=== PATIENT | female | born 1955 | race Caucasian/White ===

== ENCOUNTER 2018-06-12 11:11 | Emergency (ER) | payer OTHER ==
[~2018-06-12] VITALS: Ht 147.3 cm; Wt 70.0 kg
[2018-06-12 11:21] VITALS: Ht 147.3 cm; Wt 70.0 kg
--- NOTE | 2018-06-12 13:51 | ERD ---
ER Documentation Chief Complaint Chief Complaint Palpitation HPI The patient is a 63-year-old female, presenting to the ER because of intermittent palpitation for the last 3 days, lasted only a minute and went away by itself. She denies any symptom now, complains of a lot of stress in her life; her brother in March 30, 2018, her cousin yesterday. She denies syncope, near syncope, dizziness, neck pain, chest pain, dyspnea, abdominal pain, vomiting, dysuria, diarrhea. She does not smoke nor drink Past medical history: Dyslipidemia, hypertension, anxiety, asthma, diabetes mellitus Past surgical history: , hysterectomy, cholecystectomy ROS All systems reviewed and are negative except as per history of present illness. Physical Exam Vitals Vital Signs Date Temp Pulse Resp B/P (MAP) Pulse Ox O2 O2 Flow FiO2 Time Delivery Rate 06/12/18 98.5 84 19 182/82 97 11:21 (115) Physical Exam Const: No acute distress. Head: Atraumatic. Eyes: Normal Conjunctiva. ENT: Normal External Ears, Nose and Mouth. Neck: Full range of motion. No meningismus. Resp: Clear to auscultation bilaterally. Cardio: Regular rate and rhythm. Abd: Soft, non distended, normal bowel sounds, non tender. Skin: No petechiae or rashes. Back: No midline or flank tenderness. Ext: No cyanosis, or edema. Neur: Awake and alert. No focal deficit Psych: Normal Mood and Affect. Result Diagram: 06/12/18 1422 06/12/18 1422 Results 24 hrs Laboratory Tests Test 06/12/18 14:22 White Blood Count 8.9 10^3/ul Red Blood Count 5.10 10^6/ul Hemoglobin 15.4 g/dl Hematocrit 46.5 % Mean Corpuscular Volume 91.2 fl Mean Corpuscular Hemoglobin 30.2 pg Mean Corpuscular Hemoglobin Concent 33.1 g/dl Red Cell Distribution Width 12.5 % Platelet Count 222 10^3/UL Mean Platelet Volume 10.9 fl Immature Granulocytes % 0.400 % Neutrophils % 66.6 % Lymphocytes % 25.3 % Monocytes % 4.7 % Eosinophils % 2.4 % Basophils % 0.6 % Nucleated Red Blood Cells % 0.0 /100WBC Immature Granulocytes # 0.040 10^3/ul Neutrophils # 5.9 10^3/ul Lymphocytes # 2.3 10^3/ul Monocytes # 0.4 10^3/ul Eosinophils # 0.2 10^3/ul Basophils # 0.1 10^3/ul Nucleated Red Blood Cells # 0.0 10^3/ul Sodium Level 143 mmol/L Potassium Level 4.4 mmol/L Chloride Level 101 mmol/L Carbon Dioxide Level 30 mmol/L Anion Gap 12 Blood Urea Nitrogen 20 mg/dl Creatinine 0.42 mg/dl Est Glomerular Filtrat Rate mL/min > 60 mL/min Glucose Level 294 mg/dl Calcium Level 9.8 mg/dl Troponin I < 0.012 ng/ml Procedures/MDM EKG: Read by emergency physician Rate/Rhythm: Normal Sinus Rhythm 87 beats/min QRS, ST, T-waves: No ST elevation, no T inversion Impression: Normal EKG MEDICAL MAKING DECISION: The patient is a 63-year-old female, presenting with acute palpitation, resolved, is stable for outpatient follow-up The differential diagnoses considered include but are not limited to anxiety attack, panic attack, stress, thyroid disease, electrolyte imbalance Departure Diagnosis: Primary Impression: Palpitation Additional Impressions: Anxiety Stress Condition: Good Comments I discussed the findings with the patient. I advised the patient to follow-up with the primary physician in about 2-3 days, sooner if needed and return if any concern. Disclaimer: Inadvertent spelling and grammatical errors are likely due to EHR/dictation software use and do not reflect on the overall quality of patient care. Also, please note that the electronic time recorded on this note does not necessarily reflect the actual time of the patient encounter. DIMITRIS LARSON MD Jun 12, 2018 13:51
[2018-06-12 16:07] VITALS: BP 135/63; PULSE 75; RESP 16
== END 2018-06-12 18:23 | disposition home or self-care (01) ==
LOC: E/R 11:11
DX: F41.9 Anxiety disorder, unspecified (principal); F43.9 Reaction to severe stress, unspecified
CPT/HCPCS: 36415; 80048; 84484; 85025; 93005